=== PATIENT | female | born 1985 | race Two or more races ===

== ENCOUNTER → 2024-01-08 | Outpatient (CLI) | payer BC, SELFPAY ==
[2024-01-08 10:27] LABS: Collection Type, Urine Clean Catch
[2024-01-08 10:58] LABS: Bilirubin,Urine Negative (Negative); Blood,Urine Negative (Negative); Clarity,Urine Clear (Clear/Hazy); Color,Urine Colorless (Lt Yel-Yel); Glucose, Urine Negative (Negative); Ketones,Urine Negative (Negative); Leukocyte Esterase,Urine Negative (Negative); Nitrite,Urine Negative (Negative); PH,Urine 6.5 (5.0-7.0); Protein,Urine Negative (Neg - Trace); RBC,Urine 1 /hpf (0-3); Specific Gravity,Urine 1.005 (1.001-1.035); Squamous Epithelial Cell,Urine 2 /hpf (0-5); Urobilinogen,Urine Negative mg/dL (0.0-1.0); WBC,Urine < 1 /hpf (0-5)
[2024-01-08 10:59] LABS: Basophils # (Auto) 0.1 Thou/mm3 (0.0-0.2); Basophils % (Auto) 1 % (0-2.5); Eosinophils # (Auto) 0.3 Thou/mm3 (0.0-0.5); Eosinophils % (Auto) 3 % (0-10); Hematocrit 40.8 % (36.0-46.0); Hemoglobin 13.7 g/dL (12.0-16.0); Immature Granulocytes % (Auto) 3 % (0-0); Immature Granulocytes Auto 0.29 Thou/mm3 (0.00-0.00); Lymphocytes # (Auto) 3.4 Thou/mm3 (1.0-4.8); Lymphocytes % (Auto) 31 % (10-50); Mean Corpuscular HGB Conc 33.6 g/dl (31.0-37.0); Mean Corpuscular Volume 83 fL (80-100); Monocytes # (Auto) 0.8 Thou/mm3 (0.0-0.8); Monocytes % (Auto) 7 % (0-12); Neutrophils % (Auto) 55 % (37-80); Nucleated Red Blood Cell % 0 /100 WBC (0); Platelet Count 301 Thou/mm3 (140-440); RDW Standard Deviation 41.1 fL (36.4-46.3); Red Blood Count 4.89 Miln/mm3 (4.00-5.20); White Blood Count 10.9 Thou/mm3 (3.6-11.0)
[2024-01-08 11:08] LABS: Glucose Estimated Average 137 mg/dL (80-131); Hemoglobin A1C 6.4 % Hgb (4.8-6.0)
[2024-01-08 11:17] LABS: Creatinine MALB Rnd Ur 15 mg/dL (30-125); Microalbumin, Random Urine < 3 mg/L (0-300)
[2024-01-08 11:32] LABS: Alanine Aminotransferase 36 U/L (10-49); Albumin, Serum 4.7 gm/dL (3.5-5.0); Albumin/Globulin Ratio 1.7 (1.2-2.2); Alkaline Phosphatase 101 U/L (46-116); Anion Gap 7 (7-16); Aspartate Amino Transferase 44 U/L (0-34); BUN/Creatinine Ratio 18 Ratio (12-20); Bilirubin,Total 0.8 mg/dL (0.3-1.2); Blood Urea Nitrogen 7 mg/dL (9-23); Calcium 9.7 mg/dL (8.3-10.6); Calcium (Corrected) 9.7 mg/dL (8.5-10.1); Carbon Dioxide 25.7 mMol/L (20.0-31.0); Cardiac Risk Estimate 5.3 RATIO (3.7-5.6); Chloride 105 mMol/L (98-107); Cholesterol 149 mg/dL (132-200); Creatinine (Component) 0.4 mg/dL (0.6-1.3); Globulin 2.7 gm/dL (2.3-3.5); Glucose 104 mg/dL (74-106); HDL Cholesterol 28 mg/dL (40-60); LDL Cholesterol,Calculated 67 mg/dL (0-130); Osmolality,Calculated 273 (275-295); Sodium 138 mMol/L (136-145); Thyroid Stimulating Hormone 1.56 uIU/mL (0.55-4.78); Total Protein 7.4 gm/dL (5.7-8.2); Triglycerides 269 mg/dL (30-150); eGFR > 60 See Note
== END | disposition home or self-care (01) ==
LOC: COPL 09:54
PROVIDERS: PCP Internal Medicine; Referring Provider Internal Medicine; Visit Provider Internal Medicine
DX: E11.9 Type 2 diabetes mellitus without complications (principal); I10 Essential (primary) hypertension; E78.5 Hyperlipidemia, unspecified
CPT/HCPCS: 36415; 80053; 80061; 81001; 82043; 82570; 83036; 84443; 85025

== ENCOUNTER → 2024-03-04 | Outpatient (CLI) | payer BC, SELFPAY ==
[2024-03-04 08:23] LABS: Basophils % (Auto) 1 % (0-2.5); Eosinophils # (Auto) 0.3 Thou/mm3 (0.0-0.5); Eosinophils % (Auto) 4 % (0-10); Hematocrit 39.7 % (36.0-46.0); Hemoglobin 13.2 g/dL (12.0-16.0); Immature Granulocytes % (Auto) 2 % (0-0); Immature Granulocytes Auto 0.13 Thou/mm3 (0.00-0.00); Lymphocytes # (Auto) 3.3 Thou/mm3 (1.0-4.8); Lymphocytes % (Auto) 40 % (10-50); Mean Corpuscular HGB Conc 33.2 g/dl (31.0-37.0); Mean Corpuscular Hemoglobin 27.9 pg (25.0-35.0); Mean Corpuscular Volume 84 fL (80-100); Monocytes # (Auto) 0.5 Thou/mm3 (0.0-0.8); Monocytes % (Auto) 6 % (0-12); Neutrophils # (Auto) 4.1 Thou/mm3 (1.8-7.7); Neutrophils % (Auto) 49 % (37-80); Nucleated Red Blood Cell % 0 /100 WBC (0); Platelet Count 293 Thou/mm3 (140-440); RDW Standard Deviation 38.7 fL (36.4-46.3); Red Blood Count 4.73 Miln/mm3 (4.00-5.20); White Blood Count 8.4 Thou/mm3 (3.6-11.0)
[2024-03-04 08:36] LABS: Glucose Estimated Average 154 mg/dL (80-131)
[2024-03-04 08:43] LABS: Alanine Aminotransferase 42 U/L (10-49); Albumin, Serum 4.7 gm/dL (3.5-5.0); Albumin/Globulin Ratio 1.8 (1.2-2.2); Alkaline Phosphatase 89 U/L (46-116); Anion Gap 7 (7-16); Aspartate Amino Transferase 34 U/L (0-34); BUN/Creatinine Ratio 22 Ratio (12-20); Beta HCG,Quantitative < 1 mIU/mL (<5.0); Bilirubin,Total 0.7 mg/dL (0.3-1.2); Blood Urea Nitrogen 11 mg/dL (9-23); Calcium 9.5 mg/dL (8.3-10.6); Calcium (Corrected) 9.5 mg/dL (8.5-10.1); Chloride 105 mMol/L (98-107); Creatinine (Component) 0.5 mg/dL (0.6-1.3); Globulin 2.6 gm/dL (2.3-3.5); Glucose 156 mg/dL (74-106); Osmolality,Calculated 283 (275-295); Potassium 4.4 mMol/L (3.4-5.1); Sodium 141 mMol/L (136-145); Total Protein 7.3 gm/dL (5.7-8.2); eGFR > 60 See Note
== END | disposition home or self-care (01) ==
LOC: COPL 07:01
PROVIDERS: PCP Internal Medicine; Referring Provider Surgery; Visit Provider Surgery
DX: Z01.812 Encounter for preprocedural laboratory examination (principal)
CPT/HCPCS: 36415; 80053; 83036; 84702; 85025

== ENCOUNTER 2024-03-24 10:15 | Day surgery (SDC) | payer BC, SELFPAY ==
[2024-03-23 13:23] LABS: HCG Qualitative,Urine Negative
[2024-03-24] VITALS (16 sets, daily range): BP systolic 111–154; BP diastolic 70–108; PULSE 64–85; RESP 11–19; TEMP 36.3–36.7; O2SAT 96–100; BMI 33.6
[2024-03-24] MEDS: DiphenhydrAMINE INJ 50 MG/ML VIAL 25 MG IV (12:11)
[2024-03-24] MEDS: LIDOCAINE JELLY 2% (Urojet) 10 ML TUBE TOP (12:15)
[2024-03-24] MEDS: SIMETHICONE 40 MG/0.6 ML ORAL SYRINGE PO (12:25)
[2024-03-24] MEDS: MIDAZOLAM INJ 1 MG/ML VIAL 2 ML (ASD USE ONLY) 2 MG IV (12:39)
[2024-03-24] MEDS: fentaNYL CIT INJ 50 mCg/ML AMP 2ML (ASD USE ONLY) IV (12:39)
== END 2024-03-24 14:07 | disposition home or self-care (01) ==
PROVIDERS: PCP Internal Medicine; Referring Provider Internal Medicine Gastroenterology; Visit Provider Internal Medicine Gastroenterology
PROC: 0DBE8ZX Excision of Large Intestine, Via Natural or Artificial Opening Endoscopic, Diagnostic (ICD-10-PCS; CPT 45380; principal; 2024-03-24 12:15)
DX: D12.4 Benign neoplasm of descending colon (principal); D12.5 Benign neoplasm of sigmoid colon; K64.3 Fourth degree hemorrhoids; K57.31 Diverticulosis of large intestine without perforation or abscess with bleeding
CPT/HCPCS: 45380; 46221; 81025; A4217; A4649; J1200; J2250; J3010; A9270

== ENCOUNTER 2024-03-28 22:51 | Emergency (ER) | payer BC, SELFPAY ==
[2024-03-28 23:06] VITALS: BP 169/102; PULSE 77; RESP 18; TEMP 36.4; O2SAT 94
[2024-03-28 23:08] VITALS: BMI 33.5
--- NOTE | 2024-03-28 23:20 | PD.EDRME ---
Rapid Medical Screening Exam RME Arrival date/time: 03/28/24 22:51 38F with history of DM presents to ED with 1 day of RUQ/epigastric pain and N/V. Patient recently had a colonoscopy where 3 polyps were removed. Pathology was benign. Vital signs: Vital Signs Temperature 97.6 F 03/28/24 23:06 Pulse Rate 77 03/28/24 23:06 Respiratory Rate 18 03/28/24 23:06 Blood Pressure 169/102 H 03/28/24 23:06 Pulse Oximetry (%) 94 L 03/28/24 23:06 Oxygen Delivery Method Room Air 03/28/24 23:06
[2024-03-28 23:29] VITALS: PULSE 88; RESP 16; O2SAT 98
[2024-03-28] MEDS: MORPHINE SULF INJ 10 MG/ML VIAL 5 MG IVP (23:41)
[2024-03-28] MEDS: ONDANSETRON INJ 2 MG/ML INJ 2 ML 4 MG IV (23:41)
[2024-03-29 00:24] LABS: Alanine Aminotransferase 44 U/L (10-49); Albumin, Serum 4.9 gm/dL (3.5-5.0); Albumin/Globulin Ratio 1.4 (1.2-2.2); Alkaline Phosphatase 91 U/L (46-116); Anion Gap 11 (7-16); Aspartate Amino Transferase 42 U/L (0-34); BUN/Creatinine Ratio 23 Ratio (12-20); Bilirubin,Total 1.5 mg/dL (0.3-1.2); Blood Urea Nitrogen 14 mg/dL (9-23); Calcium 9.9 mg/dL (8.3-10.6); Calcium (Corrected) 9.9 mg/dL (8.5-10.1); Carbon Dioxide 28.4 mMol/L (20.0-31.0); Chloride 99 mMol/L (98-107); Creatinine (Component) 0.6 mg/dL (0.6-1.3); Estimated Creatinine Clearance 136.9 mL/min (>60); Globulin 3.4 gm/dL (2.3-3.5); Glucose 132 mg/dL (74-106); Lipase 47 U/L (12-53); Osmolality,Calculated 278 (275-295); Potassium 3.6 mMol/L (3.4-5.1); Sodium 138 mMol/L (136-145); Total Protein 8.3 gm/dL (5.7-8.2); eGFR > 60 See Note
[2024-03-29 00:26] LABS: Basophils # (Auto) 0.1 Thou/mm3 (0.0-0.2); Basophils % (Auto) 0 % (0-2.5); Eosinophils # (Auto) 0.2 Thou/mm3 (0.0-0.5); Eosinophils % (Auto) 1 % (0-10); Hematocrit 41.7 % (36.0-46.0); Immature Granulocytes % (Auto) 1 % (0-0); Immature Granulocytes Auto 0.16 Thou/mm3 (0.00-0.00); Lymphocytes # (Auto) 2.4 Thou/mm3 (1.0-4.8); Lymphocytes % (Auto) 13 % (10-50); Mean Corpuscular HGB Conc 33.6 g/dl (31.0-37.0); Mean Corpuscular Hemoglobin 27.6 pg (25.0-35.0); Mean Corpuscular Volume 82 fL (80-100); Monocytes # (Auto) 1.5 Thou/mm3 (0.0-0.8); Monocytes % (Auto) 8 % (0-12); Neutrophils % (Auto) 77 % (37-80); Nucleated Red Blood Cell % 0 /100 WBC (0); Platelet Count 283 Thou/mm3 (140-440); RDW Standard Deviation 38.5 fL (36.4-46.3); Red Blood Count 5.07 Miln/mm3 (4.00-5.20); White Blood Count 18.3 Thou/mm3 (3.6-11.0)
--- NOTE | 2024-03-29 00:29 | EDNOTE_ITS ---
Nausea/Vomit./Diarrhea-RME/HPI General Chief complaint: Nausea/Vomiting/Diarrhea Stated complaint: ABDOMINAL PAIN Time Seen by Provider: 03/29/24 00:08 Arrival date/time: 03/28/24 22:51 Limitations: no limitations RME / HPI RME / HPI Narrative: 03/28/24 22:51 38F with history of DM presents to ED with 1 day of RUQ/epigastric pain and N/V. Patient recently had a colonoscopy where 3 polyps were removed. Pathology was benign. Dr. Ohara's Main ED Evaluation: 38yo female with pmhx DM presents to the ED for a chief complaint of epigastric pain x 1999. Patient states her pain is constant, reporting it worsened after she last ate at 1900. She reports 2 emetic episodes. She denies any fever, chills or any other associated symptoms. No known allergies. Description of Vomiting: food contents Location of pain: RUQ and epigastric Severity: moderate Quality: constant Consistency: constant Relieving factors: none Exacerbating factors: eating Associated symptoms: loss of appetite and nausea/vomiting Related Data Home Medications ?Medication ?Instructions ?Recorded ?Confirmed metformin 1,000 mg tablet 1,000 mg PO BID #0 tabs 08/2603/24/24 (Glucophage) glipizide 5 mg tablet 5 mg PO .q day diabetes 02/2603/24/24 Previous Rx's ?Medication ?Instructions ?Recorded benzonatate 100 mg capsule See Rx Instructions .Route 11/18/18 (Gisela Lee) .COMPLEX cough #30 caps cetirizine 5 mg-pseudoephedrine ER 1 tab PO Q12H #20 t abs 11/18/18 120 mg tablet,extended release,12hr (Zyrtec-D) ipratropium bromide 21 mcg (0.03 See Rx Instructions . Route 11/18/18 %) nasal spray .COMPLEX #30 mL cetirizine 10 mg tablet (Zyrtec) 10 mg PO QDAY #30 tab s 10/30/19 sodium chloride 0.65 % nasal spray 2 spray intranasal QID #60 mL 10/30/19 aerosol (Saline Nasal) ketorolac 10 mg tablet 10 mg PO Q8H #10 tabs Held on 03/24/24. Instructions: Resume on 03/25/24. acetaminophen 325 mg capsule 650 mg (2 x 325 mg) PO QI D PRN 12/21/23 (Tylenol) pain #30 caps hydrocortisone acetate [address] BID #12 ea 12/20 rectal suppository (Anusol-HC) Allergies Allergy/AdvReac Type Severity Reaction Status Date / Time No Known Allergies Allergy Verified 03/28/24 23:56 Review of Systems Review of Systems Systems Reviewed: All systems reviewed, normal except as documented ED Exam General Limitations: Present no limitations General appearance: Present alert and in no apparent distress Head Head exam: Present atraumatic Eye Eye exam: Present normal appearance, PERRL and EOMI ENT ENT exam: Present normal exam, normal oropharynx and mucous membranes moist Neck Neck exam: Present normal inspection, full ROM and trachea midline Chest Chest inspection: Present normal inspection and symmetric chest wall rise Respiratory Respiratory exam: Present normal lung sounds bilaterally Cardiovascular Cardiovascular exam: Present regular rate, normal rhythm and normal heart sounds Abdominal Exam Abdominal exam: Present soft, guarding and normal bowel sounds; Absent rebound or Chung's sign Abdominal tenderness: Present RUQ (some) and epigastrium Extremities Exam Extremities exam: Present normal inspection and full ROM Back Exam Back exam: Present normal inspection and full ROM Neurological Exam Neurological exam: Present alert, oriented X3 and CN II-XII intact Psychiatric Psychiatric exam: Present normal affect and normal mood Skin Skin exam: Present warm, dry, intact and normal color Course Quality Measures none Orders Category Date Time Status CT Screening NOW Care 03/29/24 05:40 Active EKG (ED ONLY) *Do not use* NOW Care 03/29/24 00:32 Active Insert IV NOW Care 03/28/24 23:[address] abdomen pelvis w con Stat Exams 03/29/24 05:39 Ordered EKG (ED Only) Stat Exams 03/29/24 00:32 Draft US gall bladder Stat Exams 03/29/24 00:37 Taken CBC Stat Lab 03/28/24 23:39 Completed CMP [Comprehensive Metabolic Panel] Stat Lab 03/28/24 23:39 Completed Cholesterol Stat Lab 03/28/24 23:39 Completed Drug Screen,Urine Stat Lab 03/29/24 04:40 Completed HCG Qualitative,Urine Stat Lab 03/29/24 04:40 Completed Lipase Stat Lab 03/28/24 23:39 Completed Troponin I Stat Lab 03/28/24 23:39 Completed UA [Urinalysis] Stat Lab 03/29/24 04:40 Completed Morphine Inj Med 03/29/24 00:31 Discontinued 4 mg IVP X1 ONE Morphine Inj Med 03/28/24 23:20 Discontinued 5 mg IVP X1 ONE Ondansetron Inj [Zofran Inj] Med 03/28/24 23:20 Discontinued 4 mg IV X1 ONE Vital Signs Vital signs: Vital Signs Temperature 97.6 F 03/28/24 23:06 Pulse Rate 77 03/28/24 23:06 Respiratory Rate 18 03/28/24 23:06 Blood Pressure 169/102 H 03/28/24 23:06 Pulse Oximetry (%) 94 L 03/28/24 23:06 Oxygen Delivery Method Room Air 03/28/24 23:06 Nausea/Vomiting/Diarrhea MDM Narrative MDM Narrative:: 38-year-old female with history of diabetes presenting to the emergency department with right upper quadrant and epigastric pain since 8 PM last night. While in the emergency department the patient had a mildly elevated white count with normal lipase however right upper quadrant ultrasound showed Pancreas to be inflamed and or edematous concerning for acute pancreatitis. Patient's pain was relieved with morphine and IV fluids were given. Repeat blo od pressure is 129/85 with a heart rate of 96. Do not suspect ST elevation [place] or dissection. CT is pending. Patient data External records reviewed:: [facility] previous records (Per chart review, patient was seen here on 12/21/23 for hemorrhoids.) Clinical information provided by:: patient Social determinants that could affect healthcare access:: none Patient has the following chronic illnesses:: DM How is presenting disease/condition affected by chronic disease/condition?: uneffected by Evaluation data The following diagnostics were reviewed and interpreted by me:: lab results, radiology exam(s) and EKG tracing(s) Lab and/or radiology exams considered but not ordered:: none Interpretation Summary: WBC count is elevated at 18.3, Total Bilirubin is 1.5, Lipase is normal, according to my interpretation. EKG done at 0448, NSR, rate of 96, normal axis, normal intervals, no acute ST or T wave changes, no STEMI, according to my interpretation. Telerad Preliminary Report Draft Patient: ELY MANCUSO [facility]. Record#: [id number] Birthdate: 1985 Age/Sex: 38 / F Location: [facility] Attending Dr: Ordering Physician: Date of Service: Procedure(s): Accession Number(s): cc: ~ Gallbladder ultrasound with doppler and wave doppler spectral analysis. March 29, 2024 0055 hours Clinical history: RUQ/epigastric pain Comparison: None. Findings: The liver demonstrates increased heterogenous echogenicity. Hepatomegaly. No gallbladder calculus, wall thickening or pericholecystic fluid is identified. The common duct is normal in caliber at 2.7 mm. No free fluid is demonstrated on the submitted images. The portal vein is patent with hepatopetal flow and normal wave Doppler spectral analysis. Chung sign is negative. The pancreas is hyperechoic. The imaged portions of the right kidney are within normal limits. Impression: Hyperechoic pancreas suspicious for acute pancreatitis. Hepatomegaly associated with liver steatosis is suspicious for steatohepatitis. Heterogenous liver, consider further evaluation to exclude liver masses. Report Electronically Signed By: Nino Berry 03/29/2024 2:09:43 AM Medications / Prescriptions Medications / Prescriptions considered but not ordered:: none Medication administrations:: Medication Administration History Discontinued Medications Morphine Sulfate (Morphine Sulf Inj 10 Mg/Ml Vial) 5 mg IVP X1 ONE Stop: 03/28/24 23:21 Last Admin: 03/28/24 23:41 Dose: 5 mg Documented By: FARRUKH Morphine Sulfate (Morphine Sulf Inj 10 Mg/Ml Vial) 4 mg IVP X1 ONE Stop: 03/29/24 00:32 Last Admin: 03/29/24 01:31 Dose: 4 mg Documented By: RADHA Ondansetron HCl (Ondansetron Inj 2 Mg/Ml Inj 2 Ml) 4 mg IV X1 ONE; Protocol Stop: 03/28/24 23:21 Last Admin: 03/28/24 23:41 Dose: 4 mg Documented By: FARRUKH see above Consultations Consultation(s) initiated? (list below): No Diagnosis Nausea Differential Diagnosis: dehydration and other (CAD, gallbladder disease, biliary colic, CBD stone, pancreatitis, electrolyte abnormality) Most likely diagnosis given after review of the tests above:: final dx pending at sign out Admission Indicated Admission indicated?: not indicated Explain why admission is indicated or not indicated:: CT abdomen pelvis pending at sign out. Admission Request Was there a request for admission?: No Disposition Plan Disposition Plan: other (specify) (Signed out to Dr. Erickson at [address] abdomen pelvis.) Discharge Plan Prescriptions/Referrals Prescriptions/Med Rec: No Action ipratropium bromide 0.03 % spray,non-aerosol See Rx Instructions .Route .COMPLEX Qty: 30 0RF Rx Instructions: 2 sprays to each nostril q6-8 hours prn congestion; wait 30 seconds between sprays benzonatate [Tessalon Perles] 100 mg capsule See Rx Instructions .Route .COMPLEX Qty: 30 0RF Rx Instructions: 1-2 cap(s) PO Q8 hours prn cough cetirizine-pseudoephedrine [Zyrtec-D] 5-120 mg tablet extended release 12 hr 1 tab PO Q12H Qty: 20 0RF metformin [Glucophage] 1,000 MG tablet 1,000 mg PO BID Qty: 0 cetirizine [Zyrtec] 10 mg tablet 10 mg PO QDAY Qty: 30 0RF Saline Nasal 0.65 % aerosol,spray 2 spray INTRANASAL QID Qty: 60 0RF ketorolac 10 mg tablet 10 mg PO Q8H Qty: 10 0RF glipizide 5 mg tablet 5 mg PO .q day Patient Comments: TAKE 1 TABLET BY MOUTH TWICE A DAY acetaminophen [Tylenol] 325 mg capsule 650 mg PO QID PRN (Reason: pain) Qty: 30 0RF hydrocortisone acetate [Anusol-HC] 25 mg suppository [address] BID Qty: 12 0RF Referrals: Paulo Lipscomb MD [Primary Care Provider] - In 1 week Problem List Clinical Impression: History of diabetes mellitus, Right upper quadrant abdominal pain, Leukocytosis Patient/Caregiver Discharge Instructions Print Language: Czech
--- NOTE | 2024-03-29 00:32 | EKG_ITS ---
[facility] Test Date: 2024-03-29 Pat Name: ELY MANCUSO Department: Room: - Gender: Female [employer]: : 1985 Requested By: Dominique Griffin Order Number: [id number] Reading MD: Dominique Griffin Measurements Intervals [place] Rate: 96 P: 47 WV: 157 QRS: 44 QRSD: 93 T: 45 QT: 363 QTc: 459 Interpretive Statements SINUS RHYTHM No previous ECG available for comparison /store/S0/[id number]/ecg/[id number].pdf
--- NOTE | 2024-03-29 00:37 | XR_ITS ---
Examination: Abdomen sonogram, Limited Date and time of exam: March 29, 2024 1255 hrs. Indications: Onset epigastric pain today Technique: Real-time sterling scale transabdominal sonographic images of the upper abdomen obtained. Findings: Gallbladder sludge Gallbladder wall 0.2 cm Common bile duct 0.3 cm Pancreatic head 3.8 cm Hepatomegaly 20.7 cm fatty infiltration no focal liver lesions Normal hepatopedal portal venous flow Patent IVC Impression: Gallbladder sludge Prominent pancreas, consider CT scan abdomen pelvis intravenous contrast follow-up to further characterize the pancreas Moderate hepatomegaly fatty infiltration
[2024-03-29 01:31] LABS: Cholesterol 188 mg/dL (132-200); Troponin I < 0.002 ng/mL (0.0-0.045)
[2024-03-29] MEDS: MORPHINE SULF INJ 10 MG/ML VIAL 4 MG IVP (01:31)
[2024-03-29 02:01] VITALS: BP 162/99; PULSE 71; RESP 19; TEMP 36.8; O2SAT 99
--- NOTE | 2024-03-29 02:10 | PRELIM_ITS ---
Gallbladder ultrasound with doppler and wave doppler spectral analysis. March 29, 2024 0055 hours Clinical history: RUQ/epigastric pain Comparison: None. Findings: The liver demonstrates increased heterogenous echogenicity. Hepatomegaly. No gallbladder calculus, wall thickening or pericholecystic fluid is identified. The common duct is normal in caliber at 2.7 mm. No free fluid is demonstrated on the submitted images. The portal vein is patent with hepatopetal flow and normal wave Doppler spectral analysis. Chung sign is negative. The pancreas is hyperechoic. The imaged portions of the right kidney are within normal limits. Impression: Hyperechoic pancreas suspicious for acute pancreatitis. Hepatomegaly associated with liver steatosis is suspicious for steatohepatitis. Heterogenous liver, consider further evaluation to exclude liver masses. Report Electronically Signed By: Nino Berry 03/29/2024 2:09:43 AM [EST]
[2024-03-29 04:52] VITALS: BP 129/85; PULSE 96; RESP 18; TEMP 36.5; O2SAT 96
[2024-03-29 05:04] LABS: Collection Type, Urine Clean Catch
[2024-03-29 05:25] LABS: Bacteria,Urine 2+; Bilirubin,Urine Negative (Negative); Blood,Urine Negative (Negative); Color,Urine Yellow (Lt Yel-Yel); Glucose, Urine Negative (Negative); Ketones,Urine Negative (Negative); Leukocyte Esterase,Urine Positive (Negative); Nitrite,Urine Negative (Negative); Protein,Urine 1+ (Neg - Trace); RBC,Urine 7 /hpf (0-3); Specific Gravity,Urine 1.039 (1.001-1.035); Squamous Epithelial Cell,Urine 36 /hpf (0-5); Urobilinogen,Urine Negative mg/dL (0.0-1.0); WBC,Urine 24 /hpf (0-5)
[2024-03-29 05:28] LABS: Clarity,Urine Hazy (Clear/Hazy)
[2024-03-29 05:30] LABS: HCG Qualitative,Urine Negative
--- NOTE | 2024-03-29 05:39 | XR_ITS ---
Examination: CT abdomen with intravenous contrast CT pelvis with intravenous contrast 2-D coronal reconstructions 2-D sagittal reconstructions Date and time of exam:March 29, 2024 at 0857 hrs. Comparison November 02, 2021 Indications: Onset mid abdominal pain beginning last night. CTDI: vol (mGy) 11.3 DLP: (mGycm) 677 Technique: Multiple axial sections of the abdomen and pelvis have been obtained. 64 slice high-resolution scanner used. 3 mm axial sections have been obtained, post intravenous injection 60 cc [id number] 2-D sagittal, coronal reconstructions obtained. Low dose protocols were performed. One or more of the following dose reduction techniques were used; automated exposure control, adjustment of the mA and/or KV according to patient size, use of iterative reconstruction technique. Findings: Diffuse fatty infiltration throughout the liver, hepatomegaly 21 cm No gallstones Splenomegaly AP dimension 14 cm No pancreatic mass or peripancreatic edema Normal adrenal glands No renal or ureteral calculi, no hydronephrosis Aorta normal size Normal appendix coronal image 69 No bowel obstruction No diverticulitis Minimal fluid distended small bowel loops in the lower abdomen Anteverted uterus Septated right adnexal cyst 5.9 cm No bladder mass or bladder calculi The osseous structures are intact Impression: Hepatosplenomegaly. Diffuse fatty infiltration throughout the liver Negative for pancreatitis No renal or ureteral calculi, no hydronephrosis Mild small bowel ileus versus enteritis, clinical correlation advised Septated right adnexal cyst 5.9 cm, recommend pelvic sonography follow-up
[2024-03-29 06:00] VITALS: BP 114/77; PULSE 102; RESP 18; O2SAT 98
[2024-03-29 06:05] LABS: Amphetamine/Methamp Scrn,U Negative (Negative); Barbiturate Screen,Urine Negative (Negative); Benzodiazepines Screen,Urine Negative (Negative); Benzoylecgonine Screen, Ur Negative (Negative); Fentanyl Screen,Urine Negative (Negative); Opiate Screen,Urine Positive (Negative); THC Screen,Urine Negative (Negative)
[2024-03-29 08:16] VITALS: BP 115/77; PULSE 89; RESP 18; TEMP 36.6; O2SAT 99
--- NOTE | 2024-03-29 08:18 | EDNOTE_ITS ---
Emergency Room Addendum Addendum Narrative: 0600 care assumed by previous shift provider. Past medical, surgical, social and family history reviewed. Vitals and home medications reviewed. Results and treatment plan discussed. I will assume the care of the patient at this time and will follow the patient, pending final disposition. Patient is otherwise well-appearing nontoxic throughout my emergency department encounter. Per our discussion, she has noted about a weeks worth of poor appetite without pain or nausea. She notes increased gas and burping particularly at night. However last night after eating a pizza she had noted marked epigastric cramping where approximately 2 to 3 hours afterwards she vo mited the pizza. She has had persisting cramping and has resolved over the course of the night. She denies recent URI symptoms or diarrhea. She denies sick contacts. Abdominal surgery history includes removal and ovary due to a large cyst . Exam, is benign, she has no abdominal tenderness Patient presents with subjectivity is consistent with peptic ulcer disease, especially given her poor satiety and increased belching. I reviewed all the laboratory testing sent by the prior provider which shows no acute findings. She does have a mild leukocytosis of 18,000 which could be consistent with her vomiting/stress response. Liver enzymes are within normal limits. Ultrasound and CT by the previous provider shows no acute findings. There is an incidental ovarian cyst. Focused on patient's upper abdominal complaints, I do feel she does have excessive peptic ulcers, this is around stressful situational settings that the patient describes. She is clinically well-appearing, nontoxic, and is appropriate to start [id number] medicines. I have advised her on lifestyle changes including stress management, and dietary changes and to follow-up with her primary care doctor around 10 days for a reevaluation.
--- NOTE | 2024-03-29 08:28 | PC.NURSE ---
PT DENIES ANY CURRENT PAIN OR DISCOMFORT, STATES SHE IS FEELING MUCH BETTER. VSS ON TELE, AWAITING CT, PT UPDATED ON POC AND IN AGREEMENT AT THIS TIME, CALL SANTIAGO IN REACH.
[2024-03-29 12:02] VITALS: BP 125/65; PULSE 90; RESP 18; TEMP 36.6; O2SAT 99
== END 2024-03-29 12:03 | disposition home or self-care (01) ==
PROVIDERS: Physician Assistant; Emergency Provider Emergency Medicine; PCP Internal Medicine
DX: R10.11 Right upper quadrant pain (principal); E11.9 Type 2 diabetes mellitus without complications; D72.829 Elevated white blood cell count, unspecified
CPT/HCPCS: 36415; 74177; 76705; 80053; 80307; 81001; 81025; 82465; 83690; 84484; 85025; 93005; 96374; 96375; 99285; A4649; J2270; J2405; Q9967

== ENCOUNTER → 2024-04-27 | Outpatient (CLI) | payer BC, SELFPAY ==
--- NOTE | 2024-04-27 16:00 | XR_ITS ---
Examination: Transvaginal ultrasound of the pelvis, complete Technique: Transvaginal sonographic images pelvis performed using sterling scale imaging Exam date and time: April 27, 2024 1606 hours INDICATIONS: Septated right adnexal cystic mass 5.[address] examination March 29, 2024 FINDINGS: Uterus 10.5 cm endometrial stripe 1.3 cm No uterine mass or intrauterine gestation Right ovary 4.5 cm arterial flow, 25 x 19 x 16 mm cyst with septations and adjacent cyst 15 x 13 x 19 mm Left ovary removed by bowel gas IMPRESSION: Right ovarian cysts as above, recommend 6 month follow-up pelvic sonography.
== END | disposition home or self-care (01) ==
PROVIDERS: PCP Internal Medicine; Referring Provider Internal Medicine; Visit Provider Internal Medicine
DX: N83.201 Unspecified ovarian cyst, right side (principal)
CPT/HCPCS: 76830

== ENCOUNTER → 2024-05-11 | Outpatient (CLI) | payer BC, SELFPAY ==
[2024-05-11 10:16] LABS: Basophils # (Auto) 0.1 Thou/mm3 (0.0-0.2); Basophils % (Auto) 1 % (0-2.5); Eosinophils # (Auto) 0.2 Thou/mm3 (0.0-0.5); Eosinophils % (Auto) 3 % (0-10); Hematocrit 40.6 % (36.0-46.0); Hemoglobin 13.7 g/dL (12.0-16.0); Immature Granulocytes % (Auto) 1 % (0-0); Immature Granulocytes Auto 0.05 Thou/mm3 (0.00-0.00); Lymphocytes # (Auto) 3.4 Thou/mm3 (1.0-4.8); Lymphocytes % (Auto) 43 % (10-50); Mean Corpuscular HGB Conc 33.7 g/dl (31.0-37.0); Mean Corpuscular Hemoglobin 28.1 pg (25.0-35.0); Mean Corpuscular Volume 83 fL (80-100); Monocytes # (Auto) 0.6 Thou/mm3 (0.0-0.8); Monocytes % (Auto) 7 % (0-12); Neutrophils # (Auto) 3.6 Thou/mm3 (1.8-7.7); Neutrophils % (Auto) 46 % (37-80); Nucleated Red Blood Cell % 0 /100 WBC (0); Platelet Count 313 Thou/mm3 (140-440); RDW Standard Deviation 39.8 fL (36.4-46.3); Red Blood Count 4.87 Miln/mm3 (4.00-5.20); White Blood Count 7.9 Thou/mm3 (3.6-11.0)
[2024-05-11 10:33] LABS: Glucose Estimated Average 108 mg/dL (80-131); Hemoglobin A1C 5.4 % Hgb (4.8-6.0)
[2024-05-11 10:41] LABS: HCG,Qualitative Serum Negative
[2024-05-11 10:46] LABS: Alanine Aminotransferase 20 U/L (10-49); Albumin, Serum 4.6 gm/dL (3.5-5.0); Albumin/Globulin Ratio 1.6 (1.2-2.2); Alkaline Phosphatase 89 U/L (46-116); Anion Gap 9 (7-16); Aspartate Amino Transferase 17 U/L (0-34); BUN/Creatinine Ratio 18 Ratio (12-20); Blood Urea Nitrogen 11 mg/dL (9-23); Calcium 9.5 mg/dL (8.3-10.6); Calcium (Corrected) 9.5 mg/dL (8.5-10.1); Carbon Dioxide 28.4 mMol/L (20.0-31.0); Chloride 104 mMol/L (98-107); Creatinine (Component) 0.6 mg/dL (0.6-1.3); Globulin 2.8 gm/dL (2.3-3.5); Glucose 87 mg/dL (74-106); Osmolality,Calculated 279 (275-295); Potassium 4.1 mMol/L (3.4-5.1); Sodium 141 mMol/L (136-145); Total Protein 7.4 gm/dL (5.7-8.2); eGFR > 60 See Note
== END | disposition home or self-care (01) ==
LOC: COPL 09:26
PROVIDERS: PCP Internal Medicine; Referring Provider Surgery; Visit Provider Surgery
DX: Z01.812 Encounter for preprocedural laboratory examination (principal)
CPT/HCPCS: 36415; 80053; 83036; 84703; 85025

== ENCOUNTER → 2024-06-24 | Outpatient (CLI) | payer BC, SELFPAY ==
[2024-06-24 08:37] LABS: Basophils # (Auto) 0.1 Thou/mm3 (0.0-0.2); Basophils % (Auto) 1 % (0-2.5); Eosinophils # (Auto) 0.2 Thou/mm3 (0.0-0.5); Eosinophils % (Auto) 2 % (0-10); Hematocrit 35.3 % (36.0-46.0); Hemoglobin 11.8 g/dL (12.0-16.0); Immature Granulocytes % (Auto) 2 % (0-0); Immature Granulocytes Auto 0.19 Thou/mm3 (0.00-0.00); Lymphocytes # (Auto) 2.4 Thou/mm3 (1.0-4.8); Lymphocytes % (Auto) 31 % (10-50); Mean Corpuscular HGB Conc 33.4 g/dl (31.0-37.0); Mean Corpuscular Volume 84 fL (80-100); Monocytes # (Auto) 0.6 Thou/mm3 (0.0-0.8); Monocytes % (Auto) 8 % (0-12); Neutrophils # (Auto) 4.4 Thou/mm3 (1.8-7.7); Neutrophils % (Auto) 56 % (37-80); Nucleated Red Blood Cell % 0 /100 WBC (0); Platelet Count 326 Thou/mm3 (140-440); RDW Standard Deviation 41.3 fL (36.4-46.3); Red Blood Count 4.22 Miln/mm3 (4.00-5.20); White Blood Count 7.9 Thou/mm3 (3.6-11.0)
[2024-06-24 09:07] LABS: Alanine Aminotransferase 16 U/L (10-49); Albumin, Serum 4.5 gm/dL (3.5-5.0); Albumin/Globulin Ratio 1.5 (1.2-2.2); Alkaline Phosphatase 77 U/L (46-116); Anion Gap 8 (7-16); Aspartate Amino Transferase 17 U/L (0-34); BUN/Creatinine Ratio 15 Ratio (12-20); Bilirubin,Total 0.8 mg/dL (0.3-1.2); Blood Urea Nitrogen 9 mg/dL (9-23); C-Reactive Protein < 0.5 mg/dL (0.0-0.9); Calcium 9.4 mg/dL (8.3-10.6); Calcium (Corrected) 9.4 mg/dL (8.5-10.1); Carbon Dioxide 29.1 mMol/L (20.0-31.0); Chloride 106 mMol/L (98-107); Creatinine (Component) 0.6 mg/dL (0.6-1.3); Globulin 3.1 gm/dL (2.3-3.5); Glucose 83 mg/dL (74-106); Osmolality,Calculated 282 (275-295); Potassium 3.8 mMol/L (3.4-5.1); Sodium 143 mMol/L (136-145); Total Protein 7.6 gm/dL (5.7-8.2); Uric Acid 4.4 mg/dL (3.1-7.8); eGFR > 60 See Note
[2024-06-24 09:24] LABS: Vitamin B12 466 pg/mL (211-911); Vitamin D 25 Hydroxy Total 28.6 ng/mL (7.3-40.2)
[2024-06-24 10:25] LABS: Sed Rate (ESR) 22 mm/hr (0-20)
[2024-07-01 06:48] LABS: ANA Pattern CYTOPLASMIC; ANA Pattern NUCLEAR, SPECKLED; ANA Screen, IFA POSITIVE (NEGATIVE); ANA Titer 1:40 titer; CCP Antibody (IgG)* <16 Units; DNA (ds) Antibody* <1 IU/mL
== END | disposition home or self-care (01) ==
LOC: COPL 07:04
PROVIDERS: PCP Internal Medicine; Referring Provider Internal Medicine; Visit Provider Internal Medicine
DX: M79.0 Rheumatism, unspecified (principal); I10 Essential (primary) hypertension
CPT/HCPCS: 36415; 80053; 82306; 82607; 84550; 85025; 85652; 86038; 86140; 86200; 86225

== ENCOUNTER → 2024-10-27 | Outpatient (CLI) | payer BC, SELFPAY ==
[2024-10-27 11:41] LABS: Basophils # (Auto) 0.1 Thou/mm3 (0.0-0.2); Basophils % (Auto) 1 % (0-2.5); Eosinophils # (Auto) 0.3 Thou/mm3 (0.0-0.5); Eosinophils % (Auto) 3 % (0-10); Hematocrit 40.1 % (36.0-46.0); Hemoglobin 13.6 g/dL (12.0-16.0); Immature Granulocytes Auto 0.12 Thou/mm3 (0.00-0.00); Lymphocytes # (Auto) 3.4 Thou/mm3 (1.0-4.8); Lymphocytes % (Auto) 36 % (10-50); Mean Corpuscular HGB Conc 33.9 g/dl (31.0-37.0); Mean Corpuscular Hemoglobin 29.0 pg (25.0-35.0); Mean Corpuscular Volume 86 fL (80-100); Monocytes # (Auto) 0.6 Thou/mm3 (0.0-0.8); Monocytes % (Auto) 7 % (0-12); Neutrophils # (Auto) 5.1 Thou/mm3 (1.8-7.7); Neutrophils % (Auto) 53 % (37-80); Nucleated Red Blood Cell # 0.00 Thou/mm3 (0.00-0.00); Nucleated Red Blood Cell % 0 /100 WBC (0); Platelet Count 287 Thou/mm3 (140-440); RDW Standard Deviation 41.6 fL (36.4-46.3); Red Blood Count 4.69 Miln/mm3 (4.00-5.20); White Blood Count 9.5 Thou/mm3 (3.6-11.0)
[2024-10-27 11:57] LABS: Alanine Aminotransferase 25 U/L (10-49); Albumin, Serum 4.7 gm/dL (3.5-5.0); Albumin/Globulin Ratio 1.6 (1.2-2.2); Alkaline Phosphatase 78 U/L (46-116); Anion Gap 7 (7-16); Aspartate Amino Transferase 27 U/L (0-34); BUN/Creatinine Ratio 12 Ratio (12-20); Bilirubin,Total 0.6 mg/dL (0.3-1.2); Blood Urea Nitrogen 7 mg/dL (9-23); Calcium 10.1 mg/dL (8.3-10.6); Calcium (Corrected) 10.1 mg/dL (8.5-10.1); Carbon Dioxide 30.2 mMol/L (20.0-31.0); Chloride 106 mMol/L (98-107); Creatinine (Component) 0.6 mg/dL (0.6-1.3); Globulin 2.9 gm/dL (2.3-3.5); Glucose 81 mg/dL (74-106); Osmolality,Calculated 281 (275-295); Potassium 4.0 mMol/L (3.4-5.1); Sodium 143 mMol/L (136-145); Total Protein 7.6 gm/dL (5.7-8.2); Uric Acid 5.0 mg/dL (3.1-7.8); eGFR > 60 See Note
[2024-10-27 12:05] LABS: Vitamin B12 473 pg/mL (211-911); Vitamin D 25 Hydroxy Total 29.8 ng/mL (7.3-40.2)
[2024-10-27 12:27] LABS: Sed Rate (ESR) 18 mm/hr (0-20)
[2024-11-02 09:09] LABS: ANA Screen, IFA NEGATIVE (NEGATIVE)
== END | disposition home or self-care (01) ==
PROVIDERS: PCP Internal Medicine; Referring Provider Internal Medicine; Visit Provider Internal Medicine
DX: M79.0 Rheumatism, unspecified (principal); I10 Essential (primary) hypertension
CPT/HCPCS: 36415; 80053; 82306; 82607; 84550; 85025; 85652; 86038

== ENCOUNTER 2024-11-26 10:15 | Day surgery (SDC) | payer BC, SELFPAY ==
[2024-11-25 14:37] VITALS: BMI 32.9
[2024-11-26] VITALS (9 sets, daily range): BP systolic 107–128; BP diastolic 54–76; PULSE 63–79; RESP 16–20; TEMP 36.2–36.6; O2SAT 96–100; BMI 31.6
[2024-11-26] MEDS: RINGERS LACTATED 500 ML 500 ML 20 ML IV (11:54)
[2024-11-26] MEDS: fentaNYL CIT INJ 50 mCg/ML AMP 2ML (ASD USE ONLY) IVP (11:56)
[2024-11-26] MEDS: MIDAZOLAM INJ 1 MG/ML VIAL 2 ML (ASD USE ONLY) 2 MG IVP (11:56)
[2024-11-26] MEDS: SIMETHICONE 40 MG/0.6 ML ORAL SYRINGE PO (12:03)
== END 2024-11-26 13:00 | disposition home or self-care (01) ==
PROVIDERS: PCP Internal Medicine; Referring Provider Internal Medicine Gastroenterology; Visit Provider Internal Medicine Gastroenterology
PROC: 0DBE8ZX Excision of Large Intestine, Via Natural or Artificial Opening Endoscopic, Diagnostic (ICD-10-PCS; CPT 45380; principal; 2024-11-26 07:30)
DX: K64.8 Other hemorrhoids (principal); K52.9 Noninfective gastroenteritis and colitis, unspecified; I10 Essential (primary) hypertension; E11.9 Type 2 diabetes mellitus without complications
CPT/HCPCS: 45380; 81025; A4649; J1200; J2250; J3010; J7120; A9270